=== PATIENT | male | born 1940 | race Caucasian/White ===

== ENCOUNTER → 2016-04-19 | Day surgery (SDC) | payer OTHER ==
[~2016-04-19] VITALS: Ht 182.9 cm; Wt 84.0 kg
[2016-04-19] VITALS (8 sets, daily range): BP systolic 104–146; BP diastolic 62–90; PULSE 57–68; TEMP 36.4; O2SAT 95–99; Ht 182.9 cm; Wt 84.0 kg
[~2016-04-19] MED LIST: AMLO2.5T PO; ASPI81TA28 PO; BENZOCAIN/TETRACA/BUTAM SPRAY 200 APPLN/20 GM SPRY ONE; CANNULA ONE; CHOL1000 PO; DOCU100C31 PO; FAMO20TA11 PO; FENTANYL CITRATE INJ 50 MCG/1 ML 2 ML VIAL ONE; FINA5TAB PO; FURO-85 PO; LISI-729 PO; LISI20TA3 PO; METO25TA56 PO; MIDAZOLAM HCL 1 MG/ML 2ML VIAL ONE; POTA10CA28 PO; PRAV40TA PO; PRED-301 PO; PRED5SOL PO; PREN-29 PO; SIMV10TA2 PO; WARF5TAB7 PO
--- NOTE | 2016-04-19 08:25 | History & Physical Bridge Note ---
H&P Re-Evaluation Bridge Note: I have examined the patient, reviewed the History & Physical and in the interval since the performance of the History & Physical I have noted the following changes of clinical significance: No changes noted
--- NOTE | 2016-04-19 08:26 | Procedure Note ---
Pre-Mod Sedation Assessment General Date of Moderate Sedation: Apr 19, 2016. Vital Signs: Vital Signs Past 12 Hours Date Time Temp Pulse Resp B/P Pulse Ox O2 Delivery O2 Flow Rate FiO2 04/19/16 08:15 57 16 113/74 96 Nasal Cannula 4 04/19/16 08:13 63 18 113/70 98 Nasal Cannula 4 04/19/16 08:10 57 11 104/62 98 Nasal Cannula 4 04/19/16 08:05 59 10 111/66 98 Nasal Cannula 4 04/19/16 08:00 59 10 118/72 97 Nasal Cannula 4 04/19/16 07:55 59 10 145/86 97 Nasal Cannula 4 04/19/16 07:50 64 16 146/85 99 Nasal Cannula 4 04/19/16 07:08 36.4 58 16 146/85 97 Room Air Review Cardiovascular: regular rate, rhythm, no edema, no JVD, normal peripheral pulses, + systolic murmur, + gallop/S4 Abdomen: normal bowel sounds, non tender, soft, no organomegaly, no pulsatile mass Lungs: chest non-tender, lungs clear, normal breath sounds, no respiratory distress, no accessory muscle use Airway Class: II Pre-Sedation Airway Assessment Oral Cavity: Dental Abnormalities Short Thick Neck: No Hx of Sleep Apnea: No Smoking Status: Current Some Day Smoker Notes The planned sedation has been discussed with the patient and consent obtained. I have identified the patient, determined the appropriateness of sedation and have assessed the patient immediately prior to the procedure. All medicine(s) and interventions are by my order.
--- NOTE | 2016-04-19 08:37 | Procedure Note ---
Procedure Note Date of Service Apr 19, 2016. Procedure Note Informed consent obtained. Pt prepped in labor relations director holding area. Moderate sedation obtained with Versed 3mg and Fentanyl 75mg Images confirmed severe aortic stenosis with a bicuspid aortic valve. Start time 0759 stop time 0813 Pt tolerated well. No complications recover in labor relations director for cardiac cath
--- NOTE | 2016-04-19 08:38 | Procedure Note ---
Post-Mod Sedation Assessment General Date of Moderate Sedation Apr 19, 2016. Vital Signs: Vital Signs Past 12 Hours Date Time Temp Pulse Resp B/P Pulse Ox O2 Delivery O2 Flow Rate FiO2 04/19/16 08:15 57 16 113/74 96 Nasal Cannula 4 04/19/16 08:13 63 18 113/70 98 Nasal Cannula 4 04/19/16 08:10 57 11 104/62 98 Nasal Cannula 4 04/19/16 08:05 59 10 111/66 98 Nasal Cannula 4 04/19/16 08:00 59 10 118/72 97 Nasal Cannula 4 04/19/16 07:55 59 10 145/86 97 Nasal Cannula 4 04/19/16 07:50 64 16 146/85 99 Nasal Cannula 4 04/19/16 07:08 36.4 58 16 146/85 97 Room Air Review - Discharge Criteria Vital Signs Stable: Yes Alert/Oriented/Conversant: Yes Returned to Baseline Mental St: Yes Nausea Absent/Minimal: Yes Pain/Discomfort/Absent/Minimal: Yes Normal/Baseline Respirations: Yes Active Bleeding?: No Pt Received D/C Instructions: No Prescriptions Given: None
--- NOTE | 2016-04-19 08:40 | [facility] Post Operative Brief Note ---
Immediate Operative Summary Operative Date Apr 19, 2016. Pre-Operative Diagnosis aortic stenosis Post-Operative Diagnosis same Procedure(s) Performed [facility] Surgeon [place] Justice Surgeon(s) none Estimated Blood Loss none Findings Severely stenotic bicuspid valve Specimens none Anesthesia Versed 3mg Fentanyl 75mg Complication(s) None Disposition cardiac cath lab manager holding
--- NOTE | 2016-04-19 08:41 | TEE ---
*NOTICE TO RECEIVING CONSTITUTION PARTY AGENCY This information is strictly Confidential and protected under [place] law. [place] law prohibits you from making any further disclosure of this information unless further disclosure is expressly permitted by the written consent of the person to whom it pertains or is authorized by law. A general authorization for the release of medical or other information is not sufficient for this purpose. Hospital accepts no responsibility if the information is made available to any other person, INCLUDING THE PATIENT. Interpretation Summary * Conclusions -- * Normal LV chamber size and systolic function. * Moderately calcified, bicuspid aortic valve. Severe stenosis, no significant insufficiency. * The atrial septum is aneurysmal. * The interatrial septum is intact with no evidence for an atrial septal defect. * Mild atherosclerotic plaque(s) in the descending aorta. Procedure Details * [facility] PROBE #3 WAS USED. TIME OUT AND START: 0750 PROBE IN: 0759 PROBE OUT: 0813 * The study was performed in Cardiac Catheterization Lab. * Time out was conducted by the physician, nurse, and resident care technician with positive identification of patient and procedure. * Informed consent for Transesophageal Echocardiogram was obtained prior to the procedure. * An intravenous line was placed. A topical anesthetic agent was used for oropharangeal anesthesia. A bite block was inserted. * Fentanyl 75 mcg was administered for procedural sedation. * Midazolam 3 mg administered for sedation. * The posterior oropharynx was anesthetized using a topical anesthetic spray. A bite guard was inserted. * The usual views were obtained; basal, mid-esophageal, transgastric and aortic views. * The patient tolerated the procedure well without evidence of orophangeal or esophageal trauma. * A 2D transesophageal echocardiogram with spectral and color flow Doppler was performed. * Contrast injection with agitated saline was performed. * A 2D transesophageal echocardiogram was performed. * A 2D transesophageal echocardiogram with color flow Doppler was performed. Left Ventricle * The left ventricle is normal in size. * Left ventricular systolic function is normal. * The left ventricular wall motion is normal. Atria * The left atrial size is normal. * Right atrial size is normal. * The atrial septum is aneurysmal. * The interatrial septum is intact with no evidence for an atrial septal defect. Mitral Valve * The mitral valve is normal in structure and function. Tricuspid Valve * The tricuspid valve is normal in structure and function. Aortic Valve * Moderately calcified, bicuspid aortic valve. Severe stenosis, no significant insufficiency. Pulmonic Valve * The pulmonary valve is not well seen, but the Doppler examination is normal without significant regurgitation or stenosis. Great Vessels * The aortic root and proximal ascending aorta are normal sized. * Mild atherosclerotic plaque(s) in the descending aorta. Pericardium * There is no pericardial effusion.
--- NOTE | 2016-04-19 10:20 | Procedure Note ---
Pre-Mod Sedation Assessment General Date of Moderate Sedation: Apr 19, 2016. Vital Signs: Vital Signs Past 12 Hours Date Time Temp Pulse Resp B/P Pulse Ox O2 Delivery O2 Flow Rate FiO2 04/19/16 10:15 55 16 119/73 96 Room Air 04/19/16 10:10 52 16 143/81 96 Room Air 04/19/16 09:00 53 16 105/74 95 Nasal Cannula 2 04/19/16 08:45 58 16 117/75 96 Nasal Cannula 2 04/19/16 08:30 61 16 107/74 95 Nasal Cannula 2 04/19/16 08:15 57 16 113/74 96 Nasal Cannula 4 04/19/16 08:13 63 18 113/70 98 Nasal Cannula 4 04/19/16 08:10 57 11 104/62 98 Nasal Cannula 4 04/19/16 08:05 59 10 111/66 98 Nasal Cannula 4 04/19/16 08:00 59 10 118/72 97 Nasal Cannula 4 04/19/16 07:55 59 10 145/86 97 Nasal Cannula 4 04/19/16 07:50 64 16 146/85 99 Nasal Cannula 4 04/19/16 07:08 36.4 58 16 146/85 97 Room Air Review Cardiovascular: regular rate, rhythm, no edema, no JVD, normal peripheral pulses, + systolic murmur, + gallop/S4 Abdomen: normal bowel sounds, non tender, soft, no organomegaly, no pulsatile mass Lungs: chest non-tender, lungs clear, normal breath sounds, no respiratory distress, no accessory muscle use Airway Class: II Pre-Sedation Airway Assessment Oral Cavity: Dental Abnormalities Short Thick Neck: No Hx of Sleep Apnea: No Smoking Status: Current Some Day Smoker ASA Classification: Class III Procedure Planning Contraindications-for Mod Sed: None Yes Notes The planned sedation has been discussed with the patient and consent obtained. I have identified the patient, determined the appropriateness of sedation and have assessed the patient immediately prior to the procedure. All medicine(s) and interventions are by my order.
--- NOTE | 2016-04-19 10:21 | Procedure Note ---
Post-Mod Sedation Assessment General Date of Moderate Sedation Apr 19, 2016. Vital Signs: Vital Signs Past 12 Hours Date Time Temp Pulse Resp B/P Pulse Ox O2 Delivery O2 Flow Rate FiO2 04/19/16 10:15 55 16 119/73 96 Room Air 04/19/16 10:10 52 16 143/81 96 Room Air 04/19/16 09:00 53 16 105/74 95 Nasal Cannula 2 04/19/16 08:45 58 16 117/75 96 Nasal Cannula 2 04/19/16 08:30 61 16 107/74 95 Nasal Cannula 2 04/19/16 08:15 57 16 113/74 96 Nasal Cannula 4 04/19/16 08:13 63 18 113/70 98 Nasal Cannula 4 04/19/16 08:10 57 11 104/62 98 Nasal Cannula 4 04/19/16 08:05 59 10 111/66 98 Nasal Cannula 4 04/19/16 08:00 59 10 118/72 97 Nasal Cannula 4 04/19/16 07:55 59 10 145/86 97 Nasal Cannula 4 04/19/16 07:50 64 16 146/85 99 Nasal Cannula 4 04/19/16 07:08 36.4 58 16 146/85 97 Room Air Review - Discharge Criteria Vital Signs Stable: Yes Alert/Oriented/Conversant: Yes Returned to Baseline Mental St: Yes Nausea Absent/Minimal: Yes Pain/Discomfort/Absent/Minimal: Yes Normal/Baseline Respirations: Yes Active Bleeding?: No Pt Received D/C Instructions: No Prescriptions Given: None Specific Proced. D/C Criteria Distal Pulses Present (Cardiac: Yes Groin site assessed-Card Cath: Yes Voided Prior To Discharge: Yes Discharged Patients Adult Escort/Transportation: Yes
--- NOTE | 2016-04-19 10:25 | Cardiac Catheterization ---
Procedure Note Procedure Date Apr 19, 2016. Pre-Procedure Diagnosis Valvular Disease AUC Score 7 Post-Procedure Diagnosis Mild CAD Procedure(s) Performed Coronary Angiography (Start time 0943. Stop time 1008.) Agency Service Coordinator Dr. Leong Screw Machine Tool Setter(s) Tc RTR Estimated Blood Loss 5cc Medication(s) Versed, Lidocaine 1% Summary of Findings Minimal luminal irregularities Hemodynamics Rest Ao: 125/90/66 Final Ao: 121/87/65 LV: N/A Recommendations valve replacement Specimens None Radiation Exposure (mGy) 430 Contrast (mls) 70 Fluids (cc crystalloids) 83 Nss ACC Data Cardiac Status Clinical evaluation leading to the procedure CAD Presntation: Stable angina Anginal Classification: CCS II Heart Failure: No Cardiogenic Shock w/in 24Hrs: No Cardiac Arrest w/in 24Hrs: No Imaging studies past 6 months: Yes Stress studies past 6 months: No Coronary Anatomy Dominant: Right Left Main (% Stenosis): Normal LAD (% Stenosis): Ostial (0%), Proximal (10%), Mid (0%), Distal (0%) D1 (% Stenosis): Normal Circumflex (% Stenosis): Normal OM1 (% Stenosis): Ostial (20% taper), Proximal (0%), Mid (0%), Distal (10%) OM2 (% Stenosis): Normal RCA (% Stenosis): Normal R PDA (% Stenosis): Normal R PL1 (% Stenosis): Normal AM (% Stenosis): Normal Diagnostic Status: Elective Closure Device Percutaneous Entry Location: Femoral Closure Device: Mynx Recommendations: valve replacement Intraprocedure Events Significant Dissection: No Perforation: No
--- NOTE | 2016-04-19 10:34 | Discharge Instructions ---
Discharge Instructions Procedure Procedure Date: Apr 19, 2016. Reason for Visit: *[place]/Kopinski-Cath Doing*Aortic Stenosis. Discharge Discharge Date: Apr 19, 2016. Discharge Diagnosis: Severe aortic stenosis. Status post transesophageal echo Status post cardiac catheterization with coronary angiography Last Recorded Wt (Kilograms): 84 Anesthesia Post Anesthesia Instructions: If you have had General Anesthesia or IV Sedation: * Do not drive today. * Resume driving when surgeon permits. * Do not make important decisions or sign legal documents today. * Call surgeon for: 1. Temperature elevations greater than 101 degrees F. 2. Uncontrollable pain. 3. Excessive bleeding. 4. Persistent nausea and vomiting. 5. Medication intolerance (nausea, vomiting or rash). * For nausea and vomiting use only clear liquids such as: tea, soda, bouillon until nausea subsides, then gradually increase diet as tolerated. * If you have any concerns or questions, call your surgeon's office. If physician is unavailable and it is an emergency, call 911 or go to the nearest emergency room. Instructions Activity Recommendations: limitations as noted below Return to School/Work: with the following limitations Recommended Home Diet: resume previous diet Allergies: Coded Allergies: No Known Allergies (Unverified , 06/14/10) Provider Instructions ACTIVITY RECOMMENDATIONS: Resume activities as tolerated with no limitations unless specified. x Limit stair usage (2 or 3 trips a day only) for the next three days. x Do not lift anything heavier than 10 pounds for the next three days. x You may shower the day after your procedure, but do not immerse the area for three days. Cleanse the site gently with soap and water. _x_ Do not engage in vigorous exercise, sexual activity, or sports for 5 days. _x_ Do not drive or operate any motorized equipment for 72 hours. _x_ You may return to work/school in 5 days. _x_ Nothing to eat or drink until gag reflex returns. _x_ No HOT or WARM liquids for 12 hours. _x_ Avoid "scratchy" foods such as potato chips or pretzels for 24 hours following procedure. SPECIAL CARE: SPECIAL CARE INSTRUCTIONS: * You may replace the pressure dressing or band-aid the morning after the procedure. * After your procedure, it is normal to have a small bruise or small lump at the site. Examine your site daily for any change in the bruise or lump, redness, swelling, drainage or numbness. Notify your doctor if any change. BLEEDING: * If there is a small amount of bleeding at the site, lie down and apply firm pressure with a clean cloth for ten minutes. When the bleeding stops, lie quietly keeping the procedure limb straight for six hours. Notify your doctor as soon as possible. * If the bleeding does not stop after ten minutes or if there is a large amount of bleeding or spurting, call 911 immediately. Continue to lie down and hold firm pressure until help arrives. SKIN IRRITATION: * You may experience some redness and/or swelling in the area where radiation was administered. If any skin irritation occurs, please contact your family physician. If you experience coughing up or vomiting of blood, contact Dr. Oneill [phone] It is common to feel weak and fatigue for a few days. FOLLOW UP VISIT: Keep any scheduled doctor appointments. Dr. Oneill will discuss further testing which may include abdominal aortic duplex or CT scan. Follow Up [facility] [place] Recommendations: Call your doctor if: * Temperature above 101 degrees * Pain not relieved by pain medicine ordered * There is increased drainage or redness from any incision * You have any unanswered questions or concerns. Your Doctors Instructions noted above were prepared by provider Gustavo Leong. Patient Signature Section: Patient Instructions Signature Page Gelacio Izquierdo Patient (or Guardian) Signature/Date: I have read and understand the instructions given to me by my caregivers. Caregiver/RN/Doctor Signature/Date: The above-named patient and/or guardian has received patient instructions on this date. + Original Patient Signature Page (only) stays with chart. Please make copy for patient.
== END | disposition home or self-care (01) ==
LOC: C.CATH 06:08
PROVIDERS: ATTEND Internal Medicine Cardiovascular Disease
DX: I25.10 Atherosclerotic heart disease of native coronary artery without angina pectoris (principal); I10 Essential (primary) hypertension; E78.5 Hyperlipidemia, unspecified; F17.200 Nicotine dependence, unspecified, uncomplicated; Z98.890 Other specified postprocedural states

== ENCOUNTER 2016-05-08 13:15 | Emergency (ER) | payer OTHER ==
[~2016-05-08] VITALS: Ht 182.9 cm; Wt 81.5 kg
[~2016-05-08 13:15] MED LIST changes: -BENZOCAIN/TETRACA/BUTAM SPRAY 200 APPLN/20 GM SPRY ONE; -CANNULA ONE; -DOCU100C31 PO; -FAMO20TA11 PO; -FENTANYL CITRATE INJ 50 MCG/1 ML 2 ML VIAL ONE; -FURO-85 PO; -LISI-729 PO; -METO25TA56 PO; -MIDAZOLAM HCL 1 MG/ML 2ML VIAL ONE; -POTA10CA28 PO; -PRED-301 PO; -PREN-29 PO; -SIMV10TA2 PO; -WARF5TAB7 PO
[2016-05-08 13:22] VITALS: TEMP 36.9; Ht 182.9 cm; Wt 81.5 kg
[2016-05-08 13:31] VITALS: O2SAT 95
[2016-05-08 14:04] LABS: HEMATOCRIT 38.1 % (42-52); MEAN CORPUSCULAR HEMOGLOBIN 34.5 pg (25-34); MEAN CORPUSCULAR HGB CONC 34.9 g/dl (32-36); MEAN PLATELET VOLUME 8.7 fL (7.4-10.4); PLATELET COUNT 333 K/uL (130-400); RED BLOOD COUNT 3.85 M/uL (4.7-6.1); WHITE BLOOD COUNT 11.76 K/uL (4.8-10.8)
[2016-05-08 14:11] LABS: BUN/CREATININE RATIO 22.7 (10-20); CREATININE 1.3 mg/dl (0.60-1.40); POTASSIUM 4.4 mmol/L (3.5-5.1)
[2016-05-08 14:13] LABS: INR 1.5 (0.9-1.1); PARTIAL THROMBOPLASTIN RATIO 1.3; PROTHROMBIN TIME (PATIENT) 16.2 SECONDS (9.0-12.0)
[2016-05-08] MEDS ORDERED: SODIUM CHLORIDE 0.9% 500ML 500 ML IV STA (14:24)
--- NOTE | 2016-05-08 14:26 | EMERGENCY ROOM VISIT NOTE ---
History Report prepared by Elhamibe: Apurva Jessica Under the Supervision of: Dr. Meli Cooper D.O. First contact with patient: 14:15 Chief Complaint: TACHYCARDIA Stated Complaint: RAPID HEART RATE-S/P AVR 05/01/16 Nursing Triage Summary: Pt had aortic valve replaced 05/01/[address] Jane [facility]. Discharged Sunday. Checked HR and BP and HR noted to be elevated Sunday night. Reports HR elevated post op three different times at [facility]. HR continues to be elevated since discharge. Metroprolol held yesterday am due to low BP. Metoprolol taken per order last evening. Takes Coumadin 5mg. Denies any chest pain or any pain. History of Present Illness The patient is a 75 year old male who presents to the Emergency Room with complaints of persistent tachycardia at the past few days. He is accompanied by a friend. The patient had a porcine aortic valve replacement by Dr. Jane at [facility] on May 01, 2016. He was discharged home 3 days ago. The patient was placed on Coumadin after the surgery. His heart rate was found to be elevated 3 different times post-operatively while at [facility]. It has continued to be elevated since discharge and was 118 earlier today. He has been on Metoprolol , 12.5 mg twice day, and it was held yesterday, but he did receive his regular morning dose today. The patient states he feels well here in the ED. He denies any chest pain or shortness of breath. His friend reports he had a heart catheterization prior to surgery which was negative. The patient also denies any abdominal pain and has been having normal bowel movements. He denies any increased swelling in his legs. Source of History: patient, friend Onset: past few days Position: chest Quality: other (tachycardia) Timing: other (persistent) Associated Symptoms: No SOB, No abdominal pain, No chest pain Review of Systems See HPI for pertinent positives & negatives. A total of 10 systems reviewed and were otherwise negative. Past Medical & Surgical Medical Problems: (1) Hypertension Surgical Problems: (1) H/O aortic valve replacement with porcine valve Social History Smoking Status: Former Smoker Alcohol Use: none Drug Use: none Marital Status: Housing Status: lives alone Occupation Status: retired Current/Historical Medications Scheduled Aspirin (Aspirin Ec), 81 MG PO DAILY Cholecalciferol (Vitamin D3), 1,000 UNITS PO DAILY Docusate Sodium (Docusate Sodium), 100 MG PO BID Famotidine (Pepcid), 20 MG PO Q12 Finasteride (Proscar), 5 MG PO DAILY Furosemide (Lasix), 20 MG PO DAILY Metoprolol Tartrate (Lopressor) (Lopressor), 12.5 MG PO BID Potassium Chloride (Micro-K Ext Rel), 10 MEQ PO DAILY Pravastatin Sodium (Pravachol), 40 MG PO DAILY Vit W/ Iron Carbonyl- (Prenatabs Rx), 1 TAB PO DAILY Warfarin Sod (Jantoven), 5 MG PO DAILY Allergies Coded Allergies: No Known Allergies (Unverified , 06/14/10) Physical Exam Vital Signs Date Time Temp Pulse Resp B/P Pulse Ox O2 Delivery O2 Flow Rate FiO2 05/08/16 16:01 110 18 101/77 97 Room Air Nasal Cannula 05/08/16 16:00 115 105/92 05/08/16 15:55 117 20 105/92 95 Room Air 05/08/16 15:45 120 17 126/103 05/08/16 15:32 85 19 117/106 05/08/16 15:15 120 20 121/99 05/08/16 15:00 96 16 116/85 93 Room Air 05/08/16 14:45 100 17 114/85 93 Room Air 05/08/16 14:31 97 20 122/88 94 Room Air 101 112/83 121 101/90 05/08/16 14:05 100 19 102/61 95 Room Air 05/08/16 13:59 93 Room Air 05/08/16 13:43 97 16 107/80 92 Room Air 05/08/16 13:33 121 05/08/16 13:31 95 Room Air 05/08/16 13:31 95 Room Air 05/08/16 13:22 36.9 121 20 97/72 96 Room Air Physical Exam HEENT: Head - normocephalic and atraumatic Pupils are equal, round, and reactive to light. Extraocular eye muscles are intact, and sclera are anicteric. Nose - moist nasal mucosa without discharge. Mouth - moist buccal mucosa. Oropharynx is nonerythematous and there is no tonsillar exudate or edema noted. Neck: Supple; no JVD, nuchal rigidity, cervical lymphadenopathy, or auscultated bruits. Heart: Tachycardic rate and regular rhythm. There is a normal S1 and S2 with no murmurs, clicks, or gallops appreciated. Lungs: Clear to auscultation bilaterally with no wheezes, rales, or rhonchi. Chest: Sternal incision appears well healed. Abdomen: Soft, completely nontender, nondistended, with good bowel sounds. There are no palpable pulsatile masses or hepatosplenomegaly. There is no guarding, rigidity, or rebound noted. Extremities: No evidence of cyanosis, clubbing, or edema. There are easily palpable peripheral pulses. Skin: warm and dry with good turgor and no rashes. Medical Decision & Procedures ER Provider Diagnostic Interpretation: This X-Ray was reviewed and interpreted by myself and the radiologist. CHEST ONE VIEW PORTABLE IMPRESSION: Mild cardiomegaly. Otherwise negative study Electronically signed by: Vahe Younger M.D. 05/08/2016 2:55 PM Laboratory Results 05/08/16 13:34 05/08/16 13:34 Test 05/08/16 13:34 Red Blood Count 3.85 M/uL (4.7-6.1) Mean Corpuscular Volume 99.0 fL (80-100) Mean Corpuscular Hemoglobin 34.5 pg (25-34) Mean Corpuscular Hemoglobin Concent 34.9 g/dl (32-36) RDW Standard Deviation 46.9 fL (36.4-46.3) RDW Coefficient of Variation 13.1 % (11.5-14.5) Mean Platelet Volume 8.7 fL (7.4-10.4) Prothrombin Time 16.2 SECONDS (9.0-12.0) Prothromb Time International Ratio 1.5 (0.9-1.1) Activated Partial Thromboplast Time 32.5 SECONDS (21.0-31.0) Partial Thromboplastin Ratio 1.3 Anion Gap 10.0 mmol/L (3-11) Est Creatinine Clear Calc Drug Dose 53.9 ml/min Estimated GFR () 61.9 Estimated GFR (Non- 53.4 BUN/Creatinine Ratio 22.7 (10-20) Calcium Level 9.0 mg/dl (8.5-10.1) Total Bilirubin 0.4 mg/dl (0.2-1) Aspartate Amino Transf (AST/SGOT) 37 U/L (15-37) Alanine Aminotransferase (ALT/SGPT) 52 U/L (12-78) Alkaline Phosphatase 71 U/L (45-117) Total Creatine Kinase 82 U/L (39-308) Creatine Kinase MB 2.5 ng/ml (0.5-3.6) Creatine Kinase MB Ratio 3.0 (0-3.0) Troponin I 0.252 ng/ml (0-0.045) Pro-B-Type Natriuretic Peptide 2275 pg/ml (0-900) Total Protein 7.0 gm/dl (6.4-8.2) Albumin 3.5 gm/dl (3.4-5.0) Globulin 3.5 gm/dl (2.5-4.0) Albumin/Globulin Ratio 1.0 (0.9-2) Laboratory results per my review. Medications Administered Medications (Trade) Dose Ordered Sig/Martha Route Start Time Stop Time Status Last Admin Dose Admin Sodium Chloride (Nss 500ml) 500 ml @ 999 mls/hr Q31M STAT IV 05/08/16 14:24 05/08/16 14:54 DC 05/08/16 14:28 999 MLS/HR Metoprolol Tartrate (Lopressor Iv) 5 mg STK-MED ONCE .ROUTE 05/08/16 15:49 05/08/16 15:52 DC 05/08/16 16:00 5 MG Procedure NSS IV, Lopressor IV. ECG Indication: tachycardia Rate (beats per minute): 105 Rhythm: sinus tachycardia Findings: 1st degree AV block, RBBB, no acute ischemic change, no ectopy Change: Repeat EKG on 05/09/16: Sinus tachycardia rate of 114, RBBB, no ischemia. ED Course 1414: Past medical records reviewed. The patient was evaluated in room B1. A complete history and physical exam was performed. An IV lock was established. Labs are drones above. A portal chest x-ray was obtained. 1424: NSS 500 ml @ 999 mls/hr IV. 1430: While examining patient, he was having episodes of tachycardia. A closer review of rhythm strips revealed normal sinus rhythm, with normal VA interval in the 70's and episodes of sinus tachycardia with a 1'st degree AV block, and junctional tachycardia. 1452: During orthostatic vitals, he had no symptoms, and his blood pressure only dropped slightly 1536: I discussed the patients case with Tiffany Gonzalez Cardiology. He recommends we give the patient a dose of oral Lopressor here in the ED, and have him stop his Lasix and Potassium and have him increase his Metoprolol to 25 mg BID. 1549: Lopressor 5 mg iv. 1610: I reevaluated the patient. I discussed his results and discharge instructions and he verbalized complete understanding and agreement. Medical Decision The patient is a 75 year old male who presents to the ED with tachycardia. The differential diagnoses include dehydration, medication side effects, cardiac dysrhythmia and orthostasis. Lab results show his INR is 1.5, BUN is 30, Creatinine is 1.3, Glucose is 105, LFT's are normal, INR is 1.5, WBC is 11.7, Hemoglobin is 13.3, Troponin is 0.252 , BNP is 2275. This is a 75-year-old male patient who underwent an aortic valve replacement 1 week ago in [place]. The patient has had a normal postoperative course. The patient's friend is helping to care for him and noted on routine vital sign testing that there was some episodes of tachycardia. The patient was completely asymptomatic. On physical exam and laboratory testing, the patient was moderately dehydrated. He was given IV crystalloid therapy. I've encouraged him to drink more liquids. We will stop his Lasix and potassium. We will increase his metoprolol to 25 mg twice a day. The patient will follow-up with Dr. Oneill. The patient was told to return to the emergency department if symptoms worsened. Consults Time Called: [phone] Consulting Physician: Tiffany Gonzalez Cardiology Returned Call: [phone] I discussed the patients case with Tiffany Gonzalez Cardiology. He recommends we give the patient a dose of oral Lopressor here in the ED, and have him stop his Lasix and Potassium and have him increase his Metoprolol to 25 mg BID. Impression Primary Impression: Tachycardia Additional Impression: Dehydration Scribe Attestation The scribe's documentation has been prepared under my direction and personally reviewed by me in its entirety. I confirm that the note above accurately reflects all work, treatment, procedures, and medical decision making performed by me. Departure Information Dispostion Home / Self-Care Referrals No Doctor, Assigned (PCP) Patient Instructions My [facility] Additional Instructions Rest. Increase your clear liquid intake. Stop the Lasix and Potassium Increase the metoprolol to 25 mg twice a day. Return to the ER if symptoms worsen Problem Qualifiers
--- NOTE | 2016-05-08 14:57 | DIAGNOSTIC IMAGING REPORT ---
CHEST ONE VIEW PORTABLE CLINICAL HISTORY: TACHYCARDIA POST OP VALVE REPLACEMENT pain. Dyspnea. COMPARISON STUDY: 06/14/2010 FINDINGS: Prior median sternotomy. Diaphragms are smooth. Lungs are clear. Heart is mildly enlarged. IMPRESSION: Mild cardiomegaly. Otherwise negative study Electronically signed by: Vahe Younger M.D. 05/08/2016 2:55 PM Dictated Date/Time: 05/08/2016 2:55 PM
[2016-05-08] MEDS ORDERED: PREN-29 PO (15:16)
[2016-05-08] MEDS ORDERED: POTA10CA28 PO (15:16)
[2016-05-08] MEDS ORDERED: FURO-85 PO (15:16)
[2016-05-08] MEDS ORDERED: FAMO20TA11 PO (15:16)
[2016-05-08] MEDS ORDERED: METO25TA56 PO (15:16)
[2016-05-08] MEDS ORDERED: DOCU100C31 PO (15:16)
[2016-05-08] MEDS ORDERED: WARF5TAB7 PO (15:16)
[2016-05-08] MEDS ORDERED: METOPROLOL TARTRATE 1 MG/ML VIAL ONE (15:49)
[2016-05-08 16:01] VITALS: BP 101/77; PULSE 110; O2SAT 97
[2016-05-08] MEDS ORDERED: METOPROLOL TARTRATE 1 MG/ML VIAL IV STA (16:01)
--- NOTE | 2016-05-08 16:54 | CARDIOLOGY CONSULTATION ---
DATE OF CONSULTATION: 05/08/2016 CONSULTATION REQUESTED BY: Dr. Cooper. REASON FOR CONSULTATION: Tachycardia. HISTORY OF PRESENT ILLNESS: Mr. Izquierdo is a very pleasant 75-year-old gentleman, who is postop day #7 status post AVR. The patient presented to [facility] Emergency Department today after his friend checked his pulse and noticed it to be fast in the 130s. At that time, he contacted my office and he was instructed to come into the Emergency Department. Clinically, he states he feels absolutely fine. He has no complaints and denies experiencing any chest pain, shortness of breath, palpitations, lightheadedness, dizziness, or syncope. He has been taking his medications as directed post discharge without any issues. He has been eating well and does not have any significant pain at the sternotomy site either. Of note from his hospitalization, he did have some transient atrial fibrillation postoperatively and was placed on metoprolol and Coumadin. PAST SURGICAL HISTORY: 1. Aortic valve replacement with a 25-mm Epic bioprosthetic valve on 05/01/2016. 2. Cardiac catheterization, showing no significant obstructive disease. 3. Bladder scraping. 4. Renal calculi extraction. MEDICAL ILLNESSES: 1. Hypertension. 2. Aortic stenosis, status post AVR. 3. Hyperlipidemia. 4. Tobacco abuse. FAMILY HISTORY: Remarkable for mother suffered a fatal myocardial infarction at age 72. SOCIAL HISTORY: The patient is a lifelong smoker. He quit before surgery. Drinks rare alcohol. Denies any recreational drug use. He has 2 grown children and 5 grandchildren ____ in good health. 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 REVIEW OF SYSTEMS: As per HPI, all other review of systems reviewed and negative at this time. ALLERGIES: No known drug allergies. MEDICATIONS: 1. Metoprolol 12.5 mg b.i.d. 2. Coumadin 5 mg as directed by the Coumadin clinic. 3. Lasix 40 mg daily. 4. Potassium chloride 10 mEq daily. 5. Colace daily. 6. Aspirin 81 mg daily. 7. Pravachol 40 mg daily. 8. Proscar 5 mg daily. PHYSICAL EXAMINATION: VITALS: Temperature afebrile, pulse 115, respiratory rate 12, and blood pressure 122/88. GENERAL: Awake, alert, and oriented x3, in no acute distress. HEENT: Normocephalic and atraumatic. Pupils equal, round, and reactive to light and accommodation. Extraocular muscles intact. Anicteric sclerae. Moist mucous membranes. NECK: No JVD and no bruit. CARDIOVASCULAR: Regular, but fast. Unable to appreciate murmurs, rubs or gallops. PULMONARY: Clear to auscultation bilaterally. No rales, rhonchi, or wheezing. ABDOMEN: Bowel sounds x4, soft. No rebound, guarding, or tenderness. No organomegaly. EXTREMITIES: No clubbing, cyanosis or edema. +2 pedal pulses bilaterally. SKIN: Warm and dry. TEST RESULTS: Blood work shows sodium 139, potassium 4.4, BUN 30, and creatinine 1.3. INR 1.5. A 12-lead EKG performed in the Emergency Department independently reviewed at this time shows AV damian reentry tachycardia at 122 beats per minute. IMPRESSION: 1. Transient supraventricular tachycardia. 2. Prerenal azotemia secondary to over diuresis. 3. Postop day #7 status post AVR. RECOMMENDATIONS: It was my pleasure to see Mr. Izquierdo in reevaluation today. I agree with Dr. Cooper that the patient is volume depleted and he will receive a liter of normal saline in the Emergency Department. I will also discontinue his outpatient Lasix as well as potassium supplementation. He will be given 5 mg of IV Lopressor now and given the transient nature of the SVT, my hope is that with combination of fluids and IV Lopressor, he will maintain sinus rhythm and he will be discharged from the Emergency Room in the next few hours. Otherwise, his outpatient metoprolol will be increased to 25 mg b.i.d. He will be continued on his Coumadin as directed by the Coumadin clinic and aspirin. He is scheduled to see me on June 05 and I recommend he keep that appointment. Should he develop any symptoms, he is to come back to the Emergency Room.
== END 2016-05-08 16:39 | disposition home or self-care (01) ==
LOC: C.EDB 13:18
DX: E86.0 Dehydration (principal); R00.0 Tachycardia, unspecified; I44.0 Atrioventricular block, first degree; I45.10 Unspecified right bundle-branch block; I10 Essential (primary) hypertension; I35.8 Other nonrheumatic aortic valve disorders; Z87.891 Personal history of nicotine dependence; Z79.01 Long term (current) use of anticoagulants

== ENCOUNTER → 2016-06-28 | Outpatient (CLI) | payer OTHER ==
[~2016-06-28] MED LIST changes: -AMLO2.5T PO; +DOCU100C31 PO; +FAMO20TA11 PO; +FURO-85 PO; -LISI20TA3 PO; +METO25TA56 PO; +POTA10CA28 PO; -PRED5SOL PO; +PREN-29 PO; +WARF5TAB7 PO
== END | disposition home or self-care (01) ==
LOC: C.LABPBG 08:24
PROVIDERS: ATTEND Urology
DX: N40.1 Benign prostatic hyperplasia with lower urinary tract symptoms (principal)

== ENCOUNTER → 2017-01-15 | Outpatient (CLI) | payer OTHER ==
[~2017-01-15] MED LIST changes: -DOCU100C31 PO; -FAMO20TA11 PO; -FURO-85 PO; -POTA10CA28 PO; -PREN-29 PO
[2017-01-15 12:15] LABS: HEMATOCRIT 43.7 % (42-52); MEAN CORPUSCULAR HEMOGLOBIN 33.6 pg (25-34); MEAN CORPUSCULAR HGB CONC 34.3 g/dl (32-36); PLATELET COUNT 244 K/uL (130-400); RED BLOOD COUNT 4.46 M/uL (4.7-6.1); WHITE BLOOD COUNT 8.43 K/uL (4.8-10.8)
[2017-01-15 13:29] LABS: ALT/SGPT 24 U/L (12-78); BLOOD UREA NITROGEN 17 mg/dl (7-18); BUN/CREATININE RATIO 13.2 (10-20); CARBON DIOXIDE 28 mmol/L (21-32); CHLORIDE 105 mmol/L (98-107); CHOLESTEROL 151 mg/dl (0-200); CREATININE 1.27 mg/dl (0.60-1.40); GLUCOSE 120 mg/dl (70-99); POTASSIUM 4.1 mmol/L (3.5-5.1); SODIUM 141 mmol/L (136-145)
[2017-01-15 13:32] LABS: ALB/GLOB RATIO 1.2 (0.9-2); ALKALINE PHOSPHATASE 77 U/L (45-117); AST/SGOT 14 U/L (15-37); CHOLESTEROL/HDL RATIO 2.6; HDL CHOLESTEROL 57 mg/dl; LDL CHOLESTEROL CALCULATED 68 mg/dl; TRIGLYCERIDES 131 mg/dl (0-150); VERY LOW DENSITY LIPOPROT CALC 26 mg/dl
== END | disposition home or self-care (01) ==
LOC: C.LABPBG 10:24
PROVIDERS: ATTEND Family Medicine
DX: E78.00 Pure hypercholesterolemia, unspecified (principal); I10 Essential (primary) hypertension; Z95.2 Presence of prosthetic heart valve

== ENCOUNTER → 2017-06-26 | Outpatient (CLI) | payer OTHER ==
[2017-06-26 13:25] LABS: ALBUMIN 3.9 gm/dl (3.4-5.0); ALT/SGPT 22 U/L (12-78); AST/SGOT 15 U/L (15-37); BLOOD UREA NITROGEN 15 mg/dl (7-18); CALCIUM 8.5 mg/dl (8.5-10.1); CARBON DIOXIDE 29 mmol/L (21-32); CHOLESTEROL 149 mg/dl (0-200); CREATININE 1.52 mg/dl (0.60-1.40); GLUCOSE 124 mg/dl (70-99); POTASSIUM 3.7 mmol/L (3.5-5.1); SODIUM 140 mmol/L (136-145)
[2017-06-26 13:30] LABS: ALKALINE PHOSPHATASE 73 U/L (45-117); LDL CHOLESTEROL CALCULATED 77 mg/dl; TOTAL PROTEIN 7.4 gm/dl (6.4-8.2)
== END | disposition home or self-care (01) ==
LOC: C.LABPBG 08:08
PROVIDERS: ATTEND Urology
DX: N20.0 Calculus of kidney (principal); E78.00 Pure hypercholesterolemia, unspecified

== ENCOUNTER → 2017-07-03 | Outpatient (CLI) | payer OTHER ==
--- NOTE | 2017-07-03 12:11 | DIAGNOSTIC IMAGING REPORT ---
KUB HISTORY: Follow-up study in a patient with nephrolithiasis NEPHROLITHIASIS COMPARISON: KUB 04/14/2013. FINDINGS: The bowel gas pattern is non-obstructive. There is no organomegaly. Renal shadows are obscured by bowel gas. Round calcifications of the left upper abdomen are redemonstrated, likely superior to the left kidney. No definite nephrolithiasis or ureteral calculi identified. Phleboliths of the pelvis. No pneumoperitoneum or pneumatosis. No fracture. Multilevel degenerative changes about the spine, pelvis and hips. IMPRESSION: 1. No urolith identified. 2. Nonobstructive bowel gas pattern. Electronically signed by: Wilmer Gibson M.D. 07/03/2017 12:10 PM Dictated Date/Time: 07/03/2017 12:08 PM
== END | disposition home or self-care (01) ==
LOC: C.RAD 11:25
PROVIDERS: ATTEND Urology
DX: N20.0 Calculus of kidney (principal)